=== PATIENT | female | born 1995 | race Caucasian/White ===

== ENCOUNTER 2024-03-10 06:22 | Day surgery (SDC) | payer BC, SELFPAY | END 2024-03-10 16:44 | disposition home or self-care (01) | LOC: GI 06:22 | PROVIDERS: ATTENDING PHYSICIAN Internal Medicine Gastroenterology | DX: R10.84 Generalized abdominal pain (principal); K62.5 Hemorrhage of anus and rectum; K64.0 First degree hemorrhoids; K52.832 Lymphocytic colitis | CPT/HCPCS: 45380; 88305; 88342 ==